=== PATIENT | male | born 1985 | race Caucasian/White ===

== ENCOUNTER 2024-10-25 20:29 | Emergency (ER) | payer SELFPAY ==
[2024-10-25 20:31] VITALS: BP 171/92; PULSE 97; RESP 24; TEMP 36.1; O2SAT 100; BMI 25.5
--- NOTE | 2024-10-25 20:48 | CM.MNRNOTE ---
After triage while RN is starting IV and doing blood work pt states that he is also a DMII and has not checked his blood sugar in a while.
[2024-10-25] MEDS: SODIUM CHLORIDE 0.9% 1,000 ML 1000 ML IV (20:53)
[2024-10-25] MEDS: ONDANSETRON 4 MG/2 ML INJ IV (20:53)
[2024-10-25 20:59] LABS: Add Manual Diff / Slide Review NO; Basophils Absolute Auto 100 /uL (0-100); Basophils Percent Auto 0.9 % (0-2); Eosinophils Absolute Auto 0 /uL (0-450); Eosinophils Percent Auto 0.3 % (2-4); Hematocrit 44.7 % (41-53); Hemoglobin 15.9 g/dL (13.5-17.5); Lymphocytes Absolute Auto 1100 /uL (1100-4500); Lymphocytes Percent Auto 14.1 % (25-40); Mean Corpuscular HGB Conc 35.6 % (30-36); Mean Corpuscular Hemoglobin 33.8 PG (26-34); Mean Corpuscular Volume 94.9 fL (80-100); Monocytes Absolute Auto 300 /uL (0-900); Monocytes Percent Auto 4.2 % (3-14); Neutrophils Absolute Auto 6500 /uL (1500-7000); Neutrophils Percent Auto 80.5 % (50-75); Platelet Count 238 X10^3/uL (150-400); Red Blood Cell Count 4.71 X10^6/uL (4.5-5.9); Red Cell Distribution Width 12.8 % (11.6-14.8)
[2024-10-25 21:03] LABS: Base Excess VBG 0.8 mmol/L (0-4); HCO3 VBG 20 mmol/L (24-28); Oxygen Saturation VBG 75 % (70-75); PCO2 VBG 21.2 mmHg (45-50); PO2 VBG 32 mmHg (35-45); Total CO2 VBG 19 mmol/L (24-29); pH VBG 7.59 (7.33-7.43)
[2024-10-25 21:09] LABS: Magnesium 1.7 mg/dL (1.6-2.3)
[2024-10-25 21:10] LABS: Alanine Aminotransferase 27 IU/L (<50); Albumin Globulin Ratio 1.6 (1.0-2.8); Alkaline Phosphatase 87 U/L (38-126); Aspartate Aminotransferase 33 IU/L (17-59); BUN Creatinine Ratio 9.4 (6-22); Bilirubin Total 1.3 mg/dL (0.2-1.3); Blood Urea Nitrogen 6 mg/dL (9-20); Calcium 9.2 mg/dL (8.4-10.2); Carbon Dioxide 23 mmol/L (22-32); Chloride 104 mmol/L (98-107); Estimated Glomerular Filt Rate > 60 mL/min (>60); Globulin 3.1 g/dL (1.7-4.1); Glucose 186 mg/dL (70-99); HEMOLYSIS < 15 (0-50); Potassium 3.5 mmol/L (3.4-5.1); Sodium 142 mmol/L (137-145); Total Protein 8.1 g/dL (6.3-8.2)
[2024-10-25] MEDS: METOCLOPRAMIDE 10 MG/2 ML INJ IV (21:50)
--- NOTE | 2024-10-25 21:58 | ED_ITS ---
HPI - Nausea/Vomiting/Diarrhea General Chief complaint: Nausea/Vomiting/Diarrhea Stated complaint: Vomiting, Nausea Time Seen by Provider: 10/25/24 20:51 Source: patient Mode of arrival: Ambulatory History of Present Illness HPI Narrative: 39-year-old male with history of diabetes, denies history of gastroparesis, uses cannabis regularly, history of anxiety/depression, complains of nausea and vomiting nonbloody 420 episodes since noon today. No black or red stools. No blunt or other abdominal pain trauma. No changes in diet, intake. No hives nor allergy symptoms. He does not recall prior upper or lower endoscopy evaluations. He had testing for gastroparesis which was non confirmatory per his report. Denies headache, photophobia, neck pain. No focal weakness to face arm or leg. No focal numbness to face arm or leg. Denies chest pain or shortness of breath. Related Data Allergies Allergy/AdvReac Type Severity Reaction Status Date / Time aspirin Allergy Verified 10/25/24 20:48 NSAIDS (Non-Steroidal Allergy Verified 10/25/24 20:48 Anti-Inflamma Patient History Social History Smoking Status: Never smoker Smoking Status: Never smoker Exam Narrative Exam Narrative: GENERAL: Well-developed patient, in mild distress. Writhing in discomfort from nausea, denies abdominal pain, denies flank pain. HEAD: Atraumatic. Normocephalic. EYES: Pupils equal round and reactive. Extraocular motions intact. No scleral icterus. No injection or drainage. ENT: Nose without bleeding, purulent drainage. Throat without erythema, tonsillar hypertrophy or exudate. Airway patent. NECK: Trachea midline. Non tender CARDIOVASCULAR: Regular rate and rhythm without murmurs, gallops, or rubs. RESPIRATORY: Clear to auscultation. Breath sounds equal bilaterally. No wheezes, rales, or rhonchi. GASTROINTESTINAL: Abdomen soft, non-tender, nondistended. No obvious tender distention to abdomen. EXTREMITIES: No edema or joint tenderness. BACK: Nontender without deformity or crepitance. No flank tenderness. NEURO: AOx3. Motor functions grossly nonfocal. SKIN: No rash or erythema of visible areas Initial Vital Signs Initial Vital Signs: Vital Signs Temperature 97.0 F L 10/25/24 20:31 Pulse Rate 97 H 10/25/24 20:31 Respiratory Rate 24 10/25/24 20:31 Blood Pressure 171/92 H 10/25/24 20:31 Pulse Oximetry 100 10/25/24 20:31 Oxygen Delivery Method Room Air 10/25/24 20:31 Course Orders Ordered: ED Orders 10/25/24 20:53 VBG [Venous Blood Gas] STAT 10/25/24 21:00 Venous Blood Gas Routine 10/26/24 00:05 Urine Microscopic Stat Discontinued Medications Diazepam (Diazepam 10 Mg/2 Ml Syringe) 5 mg IV NOW ONE Stop: 10/25/24 21:58 Last Admin: 10/25/24 22:08 Dose: 5 mg Documented By: NURYS Diphenhydramine HCl (Diphenhydramine 50 Mg/Ml Vial) 50 mg IV NOW ONE Stop: 10/25/24 21:58 Last Admin: 10/25/24 22:08 Dose: 50 mg Documented By: NURYS Sodium Chloride (Normal Saline 0.9%) 1,000 mls @ 1,000 mls/hr IV BOLUS ONE Stop: 10/25/24 21:45 Last Infusion: 10/25/24 22:19 Dose: Infused Documented By: Admin: 10/25/24 20:53 Dose: 1,000 mls/hr Documented By: DELFINA Metoclopramide HCl (Metoclopramide 10 Mg/2 Ml Inj) 10 mg IV NOW ONE Stop: 10/25/24 21:49 Last Admin: 10/25/24 21:50 Dose: 10 mg Documented By: NURYS Ondansetron HCl (Ondansetron 4 Mg/2 Ml Inj) 4 mg IV NOW ONE Stop: 10/25/24 20:47 Last Admin: 10/25/24 20:53 Dose: 4 mg Documented By: DELFINA Pantoprazole Sodium (Pantoprazole 40 Mg Vial) 40 mg IV NOW ONE Stop: 10/25/24 21:58 Last Admin: 10/25/24 22:08 Dose: 40 mg Documented By: NURYS Vital Signs Vital signs: Vital Signs - 8 hr 10/25/24 22:12 10/25/24 22:30 10/25/24 22:30 Pulse Rate 69 83 Respiratory Rate 22 15 Blood Pressure 150/89 H Pulse Oximetry 100 100 Oxygen Delivery Method Oxygen Flow Rate 10/25/24 23:00 10/25/24 23:00 10/25/24 23:30 Pulse Rate 85 Respiratory Rate 15 Blood Pressure 164/73 H 137/75 Pulse Oximetry 100 Oxygen Delivery Method Oxygen Flow Rate 10/25/24 23:30 10/26/24 00:00 10/26/24 00:00 Pulse Rate 71 84 Respiratory Rate 22 15 Blood Pressure 130/80 Pulse Oximetry 100 100 Oxygen Delivery Method Nasal Cannula Nasal Cannula Oxygen Flow Rate 1 1 MDM - Nausea/Vomiting/Diarrhea Lab Data Attestation: I reviewed the patient's lab results. Lab results narrative: White blood cell count 8000, hemoglobin 15.9, platelets adequate. Glucose 186. Renal function normal. Serum CO2 23 normal. Electrolytes unremarkable. VBG pH 7.59 not consistent with diabetic ketoacidosis. Liver functions normal. Lipase normal. UA negative. 10/25/24 20:44 10/25/24 20:44 Labs: Lab Results 10/25/24 10/25/24 10/25/24 Range/Units 20:44 21:00 23:55 WBC 8.0 (4.5-11.0) X10^3/uL RBC 4.71 (4.5-5.9) X10^6/uL Hgb 15.9 (13.5-17.5) g/dL Hct 44.7 (41-53) % MCV 94.9 (80-100) fL MCH 33.8 (26-34) PG MCHC 35.6 (30-36) % RDW 12.8 (11.6-14.8) % Plt Count 238 (150-400) X10^3/uL Neut % (Auto) 80.5 H (50-75) % Lymph % (Auto) 14.1 L (25-40) % [place] % (Auto) 4.2 (3-14) % Eos % (Auto) 0.3 L (2-4) % Baso % (Auto) 0.9 (0-2) % Neut # (Auto) 6500 (5292-2487) /uL Lymph # (Auto) 1100 (4109-5463) /uL [place] # (Auto) 300 (0-900) /uL Eos # (Auto) 0 (0-450) /uL Baso # (Auto) 100 (0-100) /uL VBG pH 7.59 H (7.33-7.43) VBG pCO2 21.2 L (45-50) mmHg VBG pO2 32 L (35-45) mmHg VBG HCO3 20 L (24-28) mmol/L VBG Total CO2 19 L (24-29) mmol/L VBG O2 Saturation 75 (70-75) % VBG Base Excess 0.8 (0-4) mmol/L FiO2 % 21.0 % % Sodium 142 (137-145) mmol/L Potassium 3.5 (3.4-5.1) mmol/L Chloride 104 (98-107) mmol/L Carbon Dioxide 23 (22-32) mmol/L BUN 6 L (9-20) mg/dL Creatinine 0.64 L (0.66-1.25) mg/dL Estimated GFR > 60 (>60) mL/min BUN/Creatinine Ratio 9.4 (6-22) Glucose 186 H (70-99) mg/dL Calcium 9.2 (8.4-10.2) mg/dL Magnesium 1.7 (1.6-2.3) mg/dL Total Bilirubin 1.3 (0.2-1.3) mg/dL AST 33 (17-59) IU/L ALT 27 (<50) IU/L Alkaline Phosphatase 87 (38-126) U/L Total Protein 8.1 (6.3-8.2) g/dL Albumin 5.0 (3.5-5.0) g/dL Globulin 3.1 (1.7-4.1) g/dL Albumin/Globulin Ratio 1.6 (1.0-2.8) Lipase 286 (23-300) U/L Urine RBC None seen (0-5/HPF) Urine WBC None seen (0-5/HPF) Ur Squamous Epith Cells 0-1 /hpf (0-5/HPF) Urine Bacteria Occasional (0-1) (None) Urine Mucus 1+ H (Negative) Ur Culture Indicated? Cult not indicated Vol Urine Centrifuged 10ml (spun) Point of Care Testing Glucose POC 171 Urine Dip Bedside Urine Glucose Negative Bedside Urine Bilirubin - Negative Bedside Urine Ketone +++ 80 Urine Specific [place] 1.010 Bedside Urine Occult Blood - Negative Bedside Urine pH 8.5 Bedside Urine Protein + 30 Bedside Urine Urobilinogen - Negative Bedside Urine Nitrite - Negative Bedside Urine Leukocytes - Negative Esterase MDM Narrative Medical decision making narrative: 39-year-old male with history of diabetes, apparently no gastroparesis documented on recent study evaluation, history of cannabis use, history of anxiety/depression, with recent nausea and vomiting, no abdominal discomfort, nor tenderness. Screening labs unremarkable. IV antacid, IV diazepam anxiolytic, IV Zofran. Still nauseated, IV Reglan/Benadryl. 0030, nursing reports patient had eloped. Discharge Plan Departure Patient Disposition: Elopement Clinical Impression: Nausea and vomiting, History of diabetes mellitus, History of marijuana use
[2024-10-25] MEDS: diazePAM 10 MG/2 ML SYRINGE 5 MG IV (22:08)
[2024-10-25] MEDS: PANTOPRAZOLE 40 MG VIAL IV (22:08)
[2024-10-25] MEDS: diphenhydrAMINE 50 MG/ML VIAL IV (22:08)
[2024-10-25 22:10] LABS: Lipase 286 U/L (23-300)
[2024-10-25 22:12] VITALS: PULSE 69; RESP 22; O2SAT 100
[2024-10-25 22:30] VITALS: BP 150/89; PULSE 83; RESP 15; O2SAT 100
[2024-10-25 23:00] VITALS: BP 164/73; PULSE 85; RESP 15; O2SAT 100
[2024-10-25 23:30] VITALS: BP 137/75; PULSE 71; RESP 22; O2SAT 100
[2024-10-26] VITALS: BP 130/80; PULSE 84; RESP 15; O2SAT 100
[2024-10-26 00:26] LABS: Bacteria Urine Occasional (0-1); Culture Indicated Urine Cult Not Indicated; Mucus Urine 1+ (Negative); RBC Urine None Seen (0-5/HPF); Squamous Epithelial Cell Urine 0-1 /HPF (0-5/HPF); Urine Volume 10mL (spun); WBC Urine None Seen (0-5/HPF)
--- NOTE | 2024-10-26 01:04 | PC.NURSE ---
At 0020 noted pt walking around the department and asked if he needed help. He responded with Oh, I went the wrong way. and turned in the direction of another bathroom. At 0025 noted pt walking to exit door and asked where he was going when he responded without stopping or turning around I need to speak with my and continued out the ED doors.
== END 2024-10-26 01:16 | disposition left against medical advice (07) ==
PROVIDERS: Emergency Provider Emergency Medicine
DX: R11.2 Nausea with vomiting, unspecified (principal); E11.9 Type 2 diabetes mellitus without complications; F12.90 Cannabis use, unspecified, uncomplicated
CPT/HCPCS: 36415; 80053; 81003; 81015; 82805; 82962; 83690; 83735; 85025; 96361; 96374; 96375; 99284; J1200; J2405; J2470; J2765; J3360